=== PATIENT | male | born 1955 ===

== ENCOUNTER 2016-09-24 19:17 | Emergency (ER) | payer SELFPAY ==
[2016-09-24 20:10] VITALS: BP 124/69
--- NOTE | 2016-09-24 20:37 | ERNOTE ---
Integumentary HPI - General Presenting Symptoms: other - laceration Time Seen by Provider: 09/24/16 20:12 Source: patient Exam Limitations: no limitations - Immun/Allergies/Home Medications Immunizations: IMMUNIZATION HX Immunizations Up to Date Yes Allergies/Adverse Reactions: Allergies Allergy/AdvReac Type Severity Reaction Status Date / Time No Known Drug Allergies Allergy Unverified 01/13/12 16:36 Home Medications: HOME MEDICATIONS Temazepam [Restoril] 30 mg PO HS 06/30/12 [Last Taken Unknown] Carvedilol [Coreg] 12.5 mg PO BID 09/24/16 [Last Taken Unknown] Diltiazem HCl [Cardizem] 30 mg PO BID 09/24/16 [Last Taken Unknown] Gabapentin 300 mg PO QID 09/24/16 [Last Taken Unknown] Lisinopril/Hydrochlorothiazide [Lisinopril-Hctz 20-12.5 mg Tab] 1 each PO [Last Taken Unknown] Saw Valentines 160 mg PO DAILY 09/24/16 [Last Taken Unknown] - Pain Pain Score: 6 - History of Present Illness Narrative: Pt ran into a garage door that was partially closed and lacerated his forehead Location: Reports: scalp - forehead Quality: Reports: painful Severity: moderate Associated Symptoms: Reports: headache Review of Systems - Review of Systems Constitutional: Absent: recent illness EYE: Absent: vision changes ENT: Present: no symptoms reported Respiratory: Present: no symptoms reported Cardiology: Present: no symptoms reported Gastrointestinal/Abdominal: Present: no symptoms reported Genitourinary: Present: no symptoms reported Musculoskeletal: Absent: neck pain Skin: Present: See HPI, rash - recently had shingles on his left hand/arm Neurological: Present: other - no LOC or mental status changes Endocrine: Present: no symptoms reported Hematologic/Lymphatic: Present: no symptoms reported Psych: Present: no symptoms reported - Patient's Past Medical History Patient History - Medical: No pertinent hx, Other - shingles Patient History - Cardiac/Respiratory: Hypertension Patient History - Cancer: No Hx of Cancer Patient History - Surgical Procedures: Appendectomy, T & A, Other Patient History - Other: None - Social History Living Situations: spouse Abuse History: No History of abuse Psych History: No pertinent hx Do you dip or chew tobacco: No Alcohol Use: none Drug Use: none - Immunizations Immunizations Up to Date: Yes Physical Exam - Physical Exam General Appearance: Present: wd/wn, alert, no apparent distress Head Exam: Present: no tenderness w palpation - except immediately around the wound. No crepitance Eye Exam: Normal inspection: bilateral Neck: Present: normal inspection, nontender Respiratory: Present: no respiratory distress, no accessory muscle use Extremity Exam: Present: normal range of motion, no edema Neurological Exam: Present: alert, oriented, normal mood/affect, no motor/ sensory deficits Skin Exam: Present: other - 3.5 cm laceration of the forehead in an inverted "U " shape. Healed papules on the left hand and forearm ED Progress - Vital Signs Patient's Vital Signs:: I have reviewed the patient's vital signs. Vital Signs: Vital Signs 09/24/16 09/24/16 19:21 20:06 Temperature 36.7 C 36.8 C Pulse Rate 80 76 Respiratory 16 14 Rate Blood Pressure 125/77 124/69 O2 Sat by Pulse 98 96 Oximetry - Progress/Reassessment Chief Complaint: Laceration Departure Clinical Impression: Laceration of scalp Qualifiers: Encounter type: initial encounter Qualified Code(s): S01.01XA - Laceration without foreign body of scalp, initial encounter - Departure Disposition: Home self-care Condition: Good Instructions: Tissue Adhesive Wound Care Additional Instructions: keep other wound moist with vaseline, wash carefully daily and pat dry. Do not allow the glue to get wet. Referrals: Raghavendra Whitt DO [Primary Care Provider] -
--- OUTSIDE RECORDS SUMMARY | 2016-09-24 20:49 | XMS REPORT | Continuity of Care Document ---
:1955 Author Organization [employer] Address [place] [address] Care Team Providers Name Role Phone Jael Whitt Primary Care Provider [phone] Source Comments This disclosure is being made pursuant to the [employer] program and maynot contain all information available regarding this patient.[employer] Active Allergies and Adverse Reactions No Known Allergies Current Medications Be aware that medications may not be up to date as of this document. Alwaysverify current medications with the patient. Prescription Sig. Disp. Refills Start Date End Date Status amLODIPine (NORVASC) 10 Take 10 mg by Active MG tablet mouth daily. lisinopril Take 20 mg by Active (PRINIVIL,ZESTRIL) 20 MG mouth 2 (two) tablet times daily. LYSINE PO Take by mouth. Active MELATONIN PO Take by mouth. Active Saw Tad 500 MG CAPS Take by mouth. Active tamsulosin HCl (FLOMAX) Take 0.4 mg by Active 0.4 MG capsule mouth 2 (two) times daily. temazepam (RESTORIL) 15 Take 30 mg by Active MG capsule mouth nightly as needed. OMEPRAZOLE PO Take 1 capsule Active by mouth daily. cyclobenzaprine Take 10 mg by Active (FLEXERIL) 10 MG tablet mouth 3 (three) times daily as needed for Muscle spasms. finasteride (PROSCAR) 5 Take 1 tablet by 30 tablet 6 08/28/2014 Active MG tablet mouth daily. 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 Overview: Overview: Benign prostatic hypertrophy without lower urinary tract symptoms (LUTS) 05/30 Overview: Overview: Abdominal pain, left lower quadrant 05/29/2013 Overview: Overview: JAEL BAZAN MD Left lower quadrant abdominal swelling 05/29/2013 Overview: Overview: JAEL BAZAN MD Social History Tobacco Use Types Packs/Day Years Used Date Never Smoker Smokeless Tobacco: Never Used Alcohol Use Drinks/Week oz/Week Comments No Last Filed Vital Signs Vital Sign Reading Time Taken Blood Pressure 138/78 12/04/2014 8:39 AM CDT Pulse 72 07/09/2014 9:58 AM CDT Temperature 36.7 C (98.1 F) 07/09/2014 9:58 AM CDT Respiratory Rate 16 05/22/2014 9:27 AM CDT Height 1.867 m (6' 1.5") 07/09/2014 9:58 AM CDT Weight 94.348 kg (208 lb) 12/04/2014 8:39 AM CDT Body Mass Index 27.07 12/04/2014 8:39 AM CDT Oxygen Saturation - - Plan of Care Health Maintenance Due Date Last Done Comments Hepatitis C Screening 1971 Tetanus/Pertussis (1 - Tdap) 02/20/1972 Well Adult Visit 2003 Zoster Vaccine 60+ 2013 Influenza Immunization (#1) 2015 Colonoscopy 06/07/2023 06/06/2013 Results from Last 3 Months Not on file
== END 2016-09-24 20:44 | disposition home or self-care (01) ==
LOC: ER 19:17
PROC: 0HQ0XZZ Repair Scalp Skin, External Approach (ICD-10-PCS; principal; 2016-09-24)
DX: S01.01XA Laceration without foreign body of scalp, initial encounter (principal); W22.8XXA Striking against or struck by other objects, initial encounter; I10 Essential (primary) hypertension